=== PATIENT | female | born 1980 | race American Indian/Alaskan Native ===

== ENCOUNTER 2017-12-06 09:42 | Outpatient (CLI) | payer OTHER | END 2017-12-06 11:01 | disposition home or self-care (01) | LOC: NST 09:42 | DX: Z34.82 Encounter for supervision of other normal pregnancy, second trimester (principal) ==

== ENCOUNTER 2018-01-13 16:58 | Outpatient (CLI) | payer OTHER | END 2018-01-13 17:15 | disposition home or self-care (01) | LOC: NST 16:58 | DX: Z34.83 Encounter for supervision of other normal pregnancy, third trimester (principal) ==

== ENCOUNTER 2018-01-17 15:15 | Inpatient (IN) | payer OTHER ==
[~2018-01-17] VITALS: Ht 160 cm; Wt 91.6 kg
[2018-02-15] MEDS ORDERED: TYLENOL COLD M1 EAC3 PO (03:24)
[2018-02-15] MEDS ORDERED: PRENATAL FORMU1 EAC1 PO (03:24)
== END 2018-02-17 12:11 | disposition home or self-care (01) | DRG 807 ==
LOC: OB/GYN 02-15 02:45 → LDR 02-15 02:45 → OB/GYN 02-15 03:00
PROC: 10E0XZZ Delivery of Products of Conception, External Approach (ICD-10-PCS; principal; 2018-02-15)
PROC: 0W8NXZZ Division of Female Perineum, External Approach (ICD-10-PCS; 2018-02-15)
PROC: 4A1HXCZ Monitoring of Products of Conception, Cardiac Rate, External Approach (ICD-10-PCS; 2018-02-15)
DX: O80 Encounter for full-term uncomplicated delivery (principal); Z37.0 Single live birth; Z3A.39 39 weeks gestation of pregnancy; Z22.330 Carrier of Group B streptococcus

== ENCOUNTER 2018-02-13 08:46 | Outpatient (CLI) | payer OTHER | END 2018-02-13 09:31 | disposition home or self-care (01) | LOC: NST 08:46 | DX: Z34.83 Encounter for supervision of other normal pregnancy, third trimester (principal) ==